=== PATIENT | female | born 2000 | race Caucasian/White ===

== ENCOUNTER → 2019-07-02 06:56 | Outpatient (CLI) | payer OTHER, SELFPAY ==
--- NOTE | 2019-07-09 16:16 | PM.PFT.1 ---
Pulmonary Function Test Referral & Results Date Patient Seen: 07/02/19 Requesting provider: Khadijah Murdock Results: The spirometry demonstrates an FVC of 2.90 L which is 84% of predicted. The FEV1 was measured at 2.67 L which is 87% of predicted. The FEV1/FVC ratio was 92 which is 106% of predicted. Following the administration of bronchodilator there was no appreciable change. Lung volumes show an SVC of 3.01 L which is 84% of predicted. The diffusing capacity was measured at 20.14 which is 99% of predicted. The maximum voluntary ventilation was slightly reduced Interpretation: This study may be interpreted as normal although there may be limited evidence of mild obstructive and restrictive lung disease based on minimal reductions in FEV1 and SVC Clinical correlation suggested
== END ==
PROVIDERS: PCP Internal Medicine; Visit Provider Internal Medicine
DX: R06.00 Dyspnea, unspecified (principal)
CPT/HCPCS: 94060; 94726; 94729

== ENCOUNTER → 2022-09-17 18:59 | Outpatient (CLI) | payer OTHER, SELFPAY ==
--- NOTE | 2022-09-17 19:02 | DI.MRI.S_ITS ---
PROCEDURE: MR KNEE LT WO CON INDICATIONS: Pain in left knee TECHNIQUE: Noncontrast sagittal PD fast spin echo and T2 fast spin echo with fat saturation, sagittal 3-D FLASH with fat saturation; coronal T1 spin echo and PD fast spin echo with fat saturation, and axial PD fast spin echo with fat saturation through the knee. COMPARISON: [facility] [place], CR, XR KNEE 4+ VIEWS LEFT, 07/24/2022, 13:59. FINDINGS: Image quality: There is magnetic susceptibility artifact secondary to patient's surgical hardware limiting evaluation. Menisci: The medial and lateral menisci demonstrate normal morphology and internal signal. The meniscal root ligaments appear intact. Cruciate ligaments: The anterior and posterior cruciate ligaments appear intact. Medial structures: There is a surgical anchor within the medial femoral condyle likely secondary to prior repair of the medial collateral ligament proximally. The MCL appears grossly intact, with evaluation limited due to magnetic susceptibility artifact approximately. The semimembranosus tendon insertions and meniscocapsular junction appear intact. Visualized portions of the pes anserinus tendons appear intact without associated bursal fluid collections. Lateral structures: The lateral collateral ligament, long and short heads of the biceps femoris tendon appear intact. The popliteus tendon appears intact. Iliotibial band appears normal. Anterior structures: The quadriceps and patellar tendons appear intact. There is mild lateral tilt of the patella. The medial patellofemoral ligament is mildly attenuated in signal suggesting sequelae of a mild sprain or chronic degeneration. No femoral trochlear dysplasia or ventral trochlear prominence. No edema in the infrapatellar fat pad. There is mild edema within the medial suprapatellar fat. Bones and cartilage: No definite bone marrow contusions or fractures. There is mild cartilage thinning along the lateral patellar facet. Articular cartilage otherwise appears preserved. Joint space: There is a small joint effusion. No Medina's cyst. Normal appearing synovial plicae are incidentally noted. IMPRESSION: 1. Postsurgical changes compatible with prior surgical repair of the proximal MCL. The MCL appears grossly intact. 2. Mild edema within the medial suprapatellar fat suggestive of impingement or reactive changes. 3. Attenuated appearance of the medial patellofemoral ligament may reflect sequelae of a mild sprain or chronic degenerative changes. Dictated by: Jovani Maldonado M.D. on 09/18/2022 at 0:40 Approved by: Jovani Maldonado M.D. on 09/18/2022 at 0:48
== END ==
PROVIDERS: PCP Registered Nurse; Referring Provider Physician Assistant Medical; Visit Provider Physician Assistant Medical
DX: M25.562 Pain in left knee (principal)
CPT/HCPCS: 73721

== ENCOUNTER → 2023-03-12 08:44 | Outpatient (CLI) | payer OTHER, SELFPAY ==
[2023-03-12 09:49] LABS: Influenza A - CEPHEID Flu A NEGATIVE (NEGATIVE); Influenza B - CEPHEID Flu B NEGATIVE (NEGATIVE); Respiratory Syncytial Virus Negative (Negative)
[2023-03-12 09:50] LABS: COVID-19 CEPHEID 4-PLEX PCR Negative (Negative)
== END ==
PROVIDERS: PCP Registered Nurse; Visit Provider Student in an Organized Health Care Education/Training Program
DX: J02.9 Acute pharyngitis, unspecified (principal)
CPT/HCPCS: 0241U; 87070

== ENCOUNTER → 2023-03-12 09:30 | Outpatient (CLI) | payer OTHER, SELFPAY ==
[2023-03-12 11:41] LABS: TSH w/ Reflex to FT4 1.82 uIU/mL (0.47-4.68)
== END ==
PROVIDERS: PCP Registered Nurse; Referring Provider Student in an Organized Health Care Education/Training Program; Visit Provider Student in an Organized Health Care Education/Training Program
DX: E07.89 Other specified disorders of thyroid (principal); J02.9 Acute pharyngitis, unspecified
CPT/HCPCS: 0241U; 36415; 84443; 87070

== ENCOUNTER → 2023-05-05 09:45 | Outpatient (CLI) | payer OTHER, SELFPAY ==
--- NOTE | 2023-05-05 | DI.RAD.S_ITS ---
PROCEDURE: XR CHEST 2V INDICATIONS: COUGH TECHNIQUE: 2 views of the chest were acquired. COMPARISON: None. FINDINGS: Surgical changes and devices: None. Lungs and pleura: Probable patchy left basilar pneumonia.. No pleural effusions or pneumothorax. Mediastinum: Mediastinal contours are normal. Heart size is normal. Bones and chest wall: No suspicious bony abnormalities. Soft tissues appear unremarkable. IMPRESSION: Probable patchy left basilar pneumonia. Comment: Final report is concordant with preliminary interpretation provided by [facility]. Dictated by: Jeferson Mortensen M.D. on 05/05/2023 at 20:39 Approved by: Jeferson Mortensen M.D. on 05/05/2023 at 20:40
== END ==
PROVIDERS: PCP Internal Medicine; Referring Provider Internal Medicine; Visit Provider Internal Medicine
DX: J06.9 Acute upper respiratory infection, unspecified (principal)
CPT/HCPCS: 71046